=== PATIENT | female | born 1990 | race Caucasian/White ===

== ENCOUNTER 2018-10-01 20:09 | Emergency (ER) | payer OTHER ==
[~2018-10-01] VITALS: Ht 162.6 cm; Wt 79.5 kg
[2018-10-01 20:42] VITALS: BP 133/93
[2018-10-01] MEDS ORDERED: AMOX TR/POT CLAV 875 MG/125 MG TABLET PO ONE (20:45)
== END 2018-10-01 21:09 | disposition home or self-care (01) ==
LOC: EMS 20:10
DX: H66.91 Otitis media, unspecified, right ear (principal)

== ENCOUNTER 2019-02-25 20:21 | Emergency (ER) | payer OTHER ==
[~2019-02-25] VITALS: Ht 162.6 cm; Wt 80.9 kg
[2019-02-25] MEDS ORDERED: METOCLOPRAMIDE HCL 10 MG TABLET PO ONE (21:30)
[2019-02-25] MEDS ORDERED: IBUPROFEN 600 MG TABLET PO ONE (21:30)
[2019-02-25 21:37] LABS: BASOPHILS % (AUTO) 0.5 % (0.0-2.0); EOSINOPHILS % (AUTO) 1.2 % (1.0-6.0); HEMATOCRIT 35.9 % (36-46); HEMOGLOBIN 11.9 g/dL (12.0-16.0); LYMPHOCYTES # (AUTO) 2.1 K/uL (1.0-4.8); LYMPHOCYTES % (AUTO) 24.4 % (22.0-44.0); MEAN CORPUSCULAR HEMOGLOBIN 27.8 pg (26.0-34.0); MEAN CORPUSCULAR HGB CONC 33.1 G/dL (31.0-37.0); MEAN CORPUSCULAR VOLUME 84 fL (80-100); MONOCYTES # (AUTO) 0.8 K/uL (0.1-1.0); MONOCYTES % (AUTO) 9.1 % (2.0-9.0); NEUTROPHILS # (AUTO) 5.6 K/uL (1.8-7.7); NEUTROPHILS % (AUTO) 64.8 % (40.0-70.0); PLATELET COUNT (AUTO) 228 K/uL (150-450); RED BLOOD CELL COUNT(AUTO) 4.28 MIL/uL (4.00-5.20); RED CELL DISTRIBUTION WIDTH 13.8 % (11.5-14.5)
[2019-02-25 21:47] LABS: ANION GAP 10 mmol/L (8-16); CALCIUM, TOTAL 9.1 mg/dL (8.8-10.5); CARBON DIOXIDE 25 mmol/L (22-29); CHLORIDE 103 mmol/L (98-107); CREATININE 0.68 mg/dL (0.60-1.30); GLOMERULAR FILTR. RATE CALC > 60 mL/min (>60); GLUCOSE,RANDOM 94 mg/dL (70-110); POTASSIUM 3.5 mmol/L (3.5-5.1); SODIUM SERUM 138 mmol/L (136-145); UREA NITROGEN, BLOOD 8 mg/dL (7-18)
[2019-02-25 22:05] LABS: APPEARANCE,URINE CLOUDY (CLEAR); BILIRUBIN,URINE NEGATIVE (NEGATIVE); GLUCOSE, URINE (UA) NEGATIVE (NEGATIVE); KETONES,URINE NEGATIVE (NEGATIVE); LEUKOCYTE ESTERASE ,URINE NEGATIVE (NEGATIVE); NITRATE,URINE NEGATIVE (NEGATIVE); OCCULT BLOOD,URINE NEGATIVE (NEGATIVE); PH,URINE 7.5 (5.0-8.0); PROTEIN,URINE NEGATIVE (NEGATIVE); UROBILINOGEN,URINE 0.2 mg/dL (<=1.0)
[2019-02-25 22:14] LABS: AMORPHOUS SEDIMENT,UR Moderate /LPF (None Seen); BACTERIA,URINE None Seen /HPF (None Seen); RBC,URINE None Seen /HPF (0-2); SQUAMOUS EPITHELIAL CELL,UR Few /LPF (None Seen); WBC,URINE 0-2 /HPF (0-5)
[2019-02-25 22:16] LABS: ALANINE AMINOTRANSFERASE 26 U/L (12-78); ALBUMIN 3.1 g/dL (3.4-5.0); ALKALINE PHOSPHATASE 82 U/L (46-116); ASPARTATE AMINOTRANSFERASE 22 U/L (15-37); BILIRUBIN,TOTAL 0.2 mg/dL (0.1-1.0); HCG,QUANTITATIVE 13092 mIU/mL (0-6); LIPASE 142 U/L (73-393); TOTAL PROTEIN, SERUM 7.6 g/dL (6.4-8.2)
[2019-02-25 23:45] VITALS: BP 118/71
== END 2019-02-26 00:22 | disposition home or self-care (01) ==
LOC: EMS 20:22
DX: O26.892 Other specified pregnancy related conditions, second trimester (principal); R51 Headache; Z3A.16 16 weeks gestation of pregnancy

== ENCOUNTER 2024-03-23 23:17 | Emergency (ER) | payer OTHER ==
[~2024-03-23] VITALS: Ht 162.6 cm; Wt 85.0 kg
[2024-03-23 23:41] VITALS: BP 119/68; PULSE 72; RESP 16; TEMP 98.1
[2024-03-24 00:04] LABS: EOSINOPHILS % (AUTO) 2.2 % (1.0-6.0); HEMATOCRIT 39.7 % (36-46); HEMOGLOBIN 12.9 g/dL (12.0-16.0); LYMPHOCYTES # (AUTO) 3.8 K/uL (1.0-4.8); LYMPHOCYTES % (AUTO) 36.4 % (22.0-44.0); MEAN CORPUSCULAR HEMOGLOBIN 28.2 pg (26.0-34.0); MEAN CORPUSCULAR HGB CONC 32.4 G/dL (31.0-37.0); MEAN CORPUSCULAR VOLUME 87 fL (80-100); MONOCYTES # (AUTO) 0.8 K/uL (0.1-1.0); MONOCYTES % (AUTO) 7.9 % (2.0-9.0); NEUTROPHILS # (AUTO) 5.5 K/uL (1.8-7.7); NEUTROPHILS % (AUTO) 52.5 % (40.0-70.0); PLATELET COUNT (AUTO) 224 K/uL (150-450); RED BLOOD CELL COUNT(AUTO) 4.56 MIL/uL (4.00-5.20); RED CELL DISTRIBUTION WIDTH 13.8 % (11.5-14.5); WHITE BLOOD COUNT (AUTO) 10.4 K/uL (4.5-11.0)
[2024-03-24 00:09] LABS: ANION GAP 10 mmol/L (8-16); CALCIUM, TOTAL 9.2 mg/dL (8.8-10.5); CARBON DIOXIDE 26 mmol/L (22-29); CHLORIDE 104 mmol/L (98-107); CREATININE 0.78 mg/dL (0.60-1.30); GLOMERULAR FILTR. RATE CALC > 60 mL/min (>60); GLUCOSE,RANDOM 130 mg/dL (70-110); POTASSIUM 3.7 mmol/L (3.5-5.1); SODIUM SERUM 140 mmol/L (136-145); UREA NITROGEN, BLOOD 16 mg/dL (7-18)
[2024-03-24 00:10] LABS: LIPASE 51 U/L (16-77)
[2024-03-24] MEDS ORDERED: ONDANSETRON HCL 4 MG TABLET PO ONE (02:15)
[2024-03-24] MEDS ORDERED: OMEPRAZOLE 20 MG CAPSULE PO ONE (02:15)
[2024-03-24] MEDS ORDERED: ACETAMINOPHEN 500 MG TABLET PO ONE (02:15)
[2024-03-24] MEDS ORDERED: OMEP20 PO (02:16)
[2024-03-24] MEDS ORDERED: ACET-66 PO (02:16)
[2024-03-24] MEDS ORDERED: ONDA-104 PO (02:16)
== END 2024-03-24 03:10 | disposition home or self-care (01) ==
LOC: EMS 23:17
DX: K52.9 Noninfective gastroenteritis and colitis, unspecified (principal); R10.11 Right upper quadrant pain; R11.0 Nausea; Z79.899 Other long term (current) drug therapy
CPT/HCPCS: 76700; 80048; 83690; 85025; 99284

== ENCOUNTER 2024-03-30 10:01 | Emergency (ER) | payer OTHER ==
[~2024-03-30] VITALS: Ht 162.6 cm; Wt 80.0 kg
[~2024-03-30 10:01] MED LIST: ACET-66 PO; OMEP20 PO; ONDA-104 PO
[2024-03-30 10:08] VITALS: RESP 18; TEMP 98.2
[2024-03-30 10:51] VITALS: BP 113/54; PULSE 92
[2024-03-30 11:02] LABS: BASOPHILS % (AUTO) 0.5 % (0.0-2.0); EOSINOPHILS % (AUTO) 2.3 % (1.0-6.0); HEMATOCRIT 39.2 % (36-46); HEMOGLOBIN 12.8 g/dL (12.0-16.0); LYMPHOCYTES # (AUTO) 2.4 K/uL (1.0-4.8); LYMPHOCYTES % (AUTO) 37.3 % (22.0-44.0); MEAN CORPUSCULAR HEMOGLOBIN 28.5 pg (26.0-34.0); MEAN CORPUSCULAR HGB CONC 32.7 G/dL (31.0-37.0); MEAN CORPUSCULAR VOLUME 87 fL (80-100); MONOCYTES # (AUTO) 0.5 K/uL (0.1-1.0); MONOCYTES % (AUTO) 7.7 % (2.0-9.0); NEUTROPHILS # (AUTO) 3.4 K/uL (1.8-7.7); NEUTROPHILS % (AUTO) 52.2 % (40.0-70.0); PLATELET COUNT (AUTO) 213 K/uL (150-450); RED CELL DISTRIBUTION WIDTH 13.6 % (11.5-14.5); WHITE BLOOD COUNT (AUTO) 6.5 K/uL (4.5-11.0)
[2024-03-30 11:19] LABS: ANION GAP 4 mmol/L (8-16); CALCIUM, TOTAL 8.9 mg/dL (8.8-10.5); CARBON DIOXIDE 28 mmol/L (22-29); CHLORIDE 105 mmol/L (98-107); CREATININE 0.68 mg/dL (0.60-1.30); GLOMERULAR FILTR. RATE CALC > 60 mL/min (>60); GLUCOSE,RANDOM 88 mg/dL (70-110); POTASSIUM 3.7 mmol/L (3.5-5.1); SODIUM SERUM 137 mmol/L (136-145); UREA NITROGEN, BLOOD 11 mg/dL (7-18)
[2024-03-30 11:27] LABS: TROPONIN I-HIGH SENSITIVITY Less Than 4 ng/L (<51)
== END 2024-03-30 11:51 | disposition home or self-care (01) ==
LOC: EMS 10:07
DX: R42 Dizziness and giddiness (principal)
CPT/HCPCS: 80048; 84484; 84703; 85025; 93005; 99284